=== PATIENT | male | born 1955 | race Caucasian/White ===

== ENCOUNTER → 2016-05-24 | Day surgery (SDC) | payer BC ==
[2016-05-14 08:37] VITALS: Ht 172.7 cm; Wt 82.7 kg
[~2016-05-24] VITALS: Ht 172.7 cm; Wt 82.7 kg
[~2016-05-24] MED LIST: ACET-1256 PO; ASCA500 PO; ATOR10TA88 PO; ATROPINE SULFATE 0.1 MG/ML 5ML SYR IV PRN; B-CO-25 PO; BUPIVACAINE/EPINEPHRINE 0.25% 1:200,000 30 ML VIAL ONE; CHOL1000 PO; CLINDAMYCIN PHOS 150 MG/ML 2 ML VIAL IV SCH; COEN75CA PO; DEXAMETHASONE SOD INJ 4 MG/ML VIAL ONE; DIPH25TA32 PO; EpHEDrine SULFATE 50MG/5ML SYR ONE; EpHEDrine SULFATE INJ 50 MG/ML AMP IV PRN; EpINEphrine INJ 1MG/ML AMP 1 MG/ML AMP ONE; FENTANYL CITRATE INJ 50 MCG/1 ML 2 ML VIAL IV PRN; FENTANYL CITRATE INJ 50 MCG/1 ML 2 ML VIAL ONE; LACTATED RINGER'S 1000ML 1,000 ML IV SCH; LIDOCAINE HCL 2% 2 ML VIAL (20MG/ML) ONE; METH500T3 PO; MIDAZOLAM HCL 1 MG/ML 2ML VIAL ONE; MULT-506 PO; OMEG10007 PO; ONDANSETRON INJ 2 MG/ML 2 ML VIAL IV PRN; ONDANSETRON INJ 2 MG/ML 2 ML VIAL ONE; OXYC-57 PO; OXYCODONE/ACETAMINOPHEN 5-325 TAB PO PRN; PHENYLEPHRINE HCL INJ 10 MG/ML VIAL ONE; PROB1TAB16 PO; PROPOFOL IV EMULSION 10 MG/ML 20 ML VIAL IV ONE; RANITIDINE HCL 25 MG/ML INJ ONE; ROPIVACAINE 0.5% 5 MG/ML 30 ML VIAL ONE; SCOPOLAMINE 1.5 MG TDSY TD ONE; SODIUM CHLORIDE 0.9% 1000ML 1,000 ML IV SCH
--- NOTE | 2016-05-24 07:52 | History & Physical Bridge - [place] ---
H&P Re-Evaluation Bridge Note: I have examined the patient, reviewed the History & Physical and in the interval since the performance of the History & Physical I have noted the following changes of clinical significance: No changes noted
--- NOTE | 2016-05-24 11:22 | [facility] Post Operative Brief Note ---
Immediate Operative Summary Operative Date May 24, 2016. Pre-Operative Diagnosis Left Shoulder Tendodesis, Pain Post-Operative Diagnosis Same Procedure(s) Performed Left Shoulder Arthroscopy, Subacromial Decompression, Medium Rotator Cuff Repair, Open Biceps Tenodesis Surgeon Dr. Chris Agustin Pantograph Machine Set Up Operator Surgeon(s) Binta Cantu PA-C Estimated Blood Loss 5 cc Findings as above Specimens None Complication(s) None Disposition Recovery Room / PACU
--- NOTE | 2016-05-24 11:34 | Discharge Instructions-SurgCtr ---
Discharge Instructions Visit Reason for Visit: Right Shoulder Tendinitis, Rotator Cuff Tear, Pain Discharge Discharge Diagnosis / Problem: SAME ABOVE Discharge Goals Goal(s): Decrease discomfort, Improve function Activity Recommendations Activity Limitations: as noted below Lifting Limitations: until after follow-up appointment Exercise/Sports Limitations: until after follow-up appointment Shower/Bathe: tomorrow Anesthesia . Post Anesthesia Instructions: If you have had General Anesthesia or IV Sedation: * Do not drive today. * Resume driving when surgeon permits. * Do not make important decisions or sign legal documents today. * Call surgeon for: 1. Temperature elevations greater than 101 degrees F. 2. Uncontrollable pain. 3. Excessive bleeding. 4. Persistent nausea and vomiting. 5. Medication intolerance (nausea, vomiting or rash). * For nausea and vomiting use only clear liquids such as: tea, soda, bouillon until nausea subsides, then gradually increase diet as tolerated. * If you have any concerns or questions, call your surgeon's office. If physician is unavailable and it is an emergency, call 911 or go to the nearest emergency room. . Instructions / Follow-Up Instructions / Follow-Up MEDICATIONS: * Resume previous medications unless instructed otherwise by your surgeon. * Always take pain medication on a full stomach or with food to avoid upset stomach. * Do not drink alcohol or drive while taking narcotics. * Ibuprofen or Tylenol may be taken if narcotic not needed. SPECIAL CARE INSTRUCTIONS: __ None _X_ Keep extremity elevated and iced x 48 hours; apply ice 20-30 minutes 8-10 times/day. May remove at night. __ Sling __24 hrs/day __ Remove at night _X_ Shoulder Immobilizer (MAY REMOVE AFTER 48 HOURS ONLY TO SHOWER AND FOR THERAPY) _X_ 24 hrs/day __ Remove at night _X_ Dressing __ Maintain until seen in office, may shower with plastic over site _X_ Remove dressings in 24-48 hours and then may shower _X_ Cover incisions with band-aids after showering _X_ Do not remove steri-strips (THEY MAY FALL OFF ON THEIR OWN) Call physician if chills or temperature rises above 102 degrees or pain unrelieved by prescribed pain medications at . . Diet Recommendations Home Diet: no limitations Fluid Restriction: None Procedures Procedures Performed: Left Shoulder Arthroscopy, Subacromial Decompression, Medium Rotator Cuff Repair, Open Biceps Tenodesis Pending Studies Studies pending at discharge: no Work Instructions Return To Work: after follow-up Lifting Limitations: NO LIFTING WITH LEFT ARM Medical Emergencies . Who to Call and When: Medical Emergencies: If at any time you feel your situation is an emergency, please call 911 immediately. . Non-Emergent Contact Non-Emergency issues call your: Primary Care Provider Call Non-Emergent contact if: you have a fever, temperature is above 101.5 . . "Provider Documentation" section prepared by Jorje Cantu.
--- NOTE | 2016-05-24 11:47 | OPERATIVE REPORT ---
DATE OF OPERATION: 05/24/2016 PREOPERATIVE DIAGNOSIS: Severe external impingement with traumatic rotator cuff tear of the left shoulder. POSTOPERATIVE DIAGNOSIS: Same. PROCEDURE: Left shoulder diagnostic arthroscopy with limited debridement, acromioplasty crescent-shaped traumatic rotator cuff repair and open subpectoral biceps tenodesis. SURGEON: Dr. Shubham Agustin. BORDER MACHINE OPERATOR: Augie Cantu PA-C, whose assistance was necessary for positioning the arm and helping with instrumentation. ANESTHESIA: General with a left interscalene nerve block. COMPLICATIONS: None. CONDITION: Stable to PACU. INDICATIONS: Phillip is a pleasant 61-year-old male who fell off a ladder about 6 months ago. He has been having shoulder pain since. MRI and clinical examination were diagnostic for medium-sized rotator cuff tear. After failing conservative treatment, he elected to undergo arthroscopy. PROCEDURE: On 05/24/2016 he arrived at [facility] for the above procedure. He was seen in the preoperative holding area and the operative extremity was identified and signed. He was given a preoperative antibiotic and a left interscalene nerve block. He was taken back to the operating room, laid on the table in supine position and put under general anesthesia. He was then put into the beachchair position. Left shoulder was prepped and draped in sterile fashion. Time-out was done and the patient and operative extremity was properly identified. A scope was introduced in the posterior portal. Diagnostic arthroscopy showed no cartilage damage to the humeral head or the glenoid. There was a little fraying of the labrum. There was a tear of the supraspinatus. The infraspinatus, teres minor, and subscapularis were all checked and intact. The biceps tendon was generally intact but the biceps hanny mechanism was torn from the tear. An anterior portal was made. A shaver was used to do a limited debridement of the intraarticular structures and the biceps tendon was arthroscopically tenotomized. The scope was then put into the subacromial space. A lateral portal was made. A shaver was used to do a complete subacromial and subdeltoid bursectomy. An ablator was used to tease the coracoacromial ligament off the undersurface of the acromion and a 5-0 ava was used to complete an acromioplasty a large Bigliani type 3 acromion. A shaver was used to remove any excess debris and attention was turned to the rotator cuff. An additional anterolateral portal was made and Taylor cannulas were placed in each of the lateral portals. The greater tuberosity was repaired with a ring curette and a microfracture. The rotator cuff was then fixed with an Arthrex SpeedBridge configuration using 2 medial and 2 lateral 4.75 mm BioComposite SwiveLock suture anchors and FiberTape. This gave an excellent repair. Multiple pictures were taken. Arthroscopic instruments were removed from the shoulder. Portal sites were closed with 3-0 nylon. Attention was then turned to an open biceps tenodesis. A small incision was made over the inferior border of the pec major. Dissection was taken down through the fascia and the long head of the biceps tendon was delivered out of the wound. The tendon was then whip stitched at the anticipated level of tenodesis and the remainder of the tendon was discarded. A 6 mm hole was drilled in the bicipital groove and the biceps tendon was tenodesed with an Arthrex biceps button that was passed through the posterior cortex in a tension slide technique to deliver the tendon into the 6 mm hole. This gave good fixation. The wound was then irrigated and closed with 3-0 Vicryl and running 3-0 Monocryl. Steri-strips were placed. Portal sites were closed with 3-0 nylon. He was then placed in a soft dressing and abduction arm sling. He was then extubated, transferred to a [facility] and taken to the postanesthesia care unit in stable condition. He tolerated the procedure well. I attest to the content of the Intraoperative Record and any orders documented therein. Any exceptio ns are noted below.
[2016-05-24 12:15] VITALS: TEMP 36.3
[2016-05-24 12:36] VITALS: BP 130/73; O2SAT 96
--- NOTE | 2016-05-24 12:56 | Anesthesia Progress Nt - [facility] ---
Anesthesia Post Op Note Date & Time May 24, 2016 at 12:52 Vital Signs Pain Intensity: 0 Vital Signs Past 12 Hours Date Time Temp Pulse Resp B/P Pulse Ox O2 Delivery O2 Flow Rate FiO2 05/24/16 12:36 80 16 130/73 96 Room Air 05/24/16 12:15 36.3 76 16 131/77 96 Room Air 05/24/16 12:01 74 18 05/24/16 12:01 74 18 96 05/24/16 12:00 79 15 95 05/24/16 12:00 36.4 79 20 117/72 96 Room Air 05/24/16 12:00 79 15 05/24/16 11:58 117/72 05/24/16 11:55 81 15 96 05/24/16 11:55 81 15 05/24/16 11:54 81 14 05/24/16 11:54 81 14 97 05/24/16 11:53 123/73 05/24/16 11:49 75 15 05/24/16 11:49 74 15 95 05/24/16 11:48 121/71 05/24/16 11:44 84 19 05/24/16 11:44 84 19 97 05/24/16 11:43 130/71 05/24/16 11:41 86 18 05/24/16 11:41 86 18 99 05/24/16 11:38 120/71 05/24/16 11:36 85 15 05/24/16 11:36 86 15 100 05/24/16 11:34 36.4 75 16 127/68 99 Mask 6 05/24/16 11:33 120/68 05/24/16 09:26 0 05/24/16 09:25 81 17 99 05/24/16 09:25 81 05/24/16 09:23 123/76 05/24/16 09:20 65 17 98 05/24/16 09:20 65 05/24/16 09:18 121/83 05/24/16 09:15 70 05/24/16 09:15 69 18 99 05/24/16 09:14 68 15 98 05/24/16 09:14 68 05/24/16 09:13 123/77 05/24/16 09:09 67 17 99 05/24/16 09:09 67 05/24/16 09:08 128/75 05/24/16 09:04 69 05/24/16 09:04 69 14 99 05/24/16 09:03 132/81 05/24/16 08:59 73 14 98 05/24/16 08:59 72 05/24/16 08:58 131/78 05/24/16 08:54 73 18 98 05/24/16 08:54 72 05/24/16 08:53 122/77 05/24/16 08:49 73 24 98 05/24/16 08:49 73 05/24/16 08:48 131/83 05/24/16 08:46 72 05/24/16 08:46 72 16 99 05/24/16 08:43 117/75 05/24/16 08:41 69 23 98 05/24/16 08:41 69 05/24/16 08:38 137/82 05/24/16 08:36 67 26 99 05/24/16 08:36 67 05/24/16 08:33 134/88 05/24/16 08:31 74 05/24/16 08:31 74 17 99 05/24/16 08:28 153/99 05/24/16 08:26 89 05/24/16 08:26 90 26 100 05/24/16 08:25 82 21 155/90 99 Mask 4 05/24/16 08:24 155/90 05/24/16 07:36 36.8 77 16 142/92 99 Room Air Notes Mental Status: alert / awake / arousable, participated in evaluation Pt Amnestic to Procedure: Yes Nausea / Vomiting: adequately controlled Pain: adequately controlled Airway Patency, RR, SpO2: stable & adequate BP & HR: stable & adequate Hydration State: stable & adequate Anesthetic Complications: no major complications apparent The patient is a 60 y/o male with a history of DLD s/p L shoulder Arthroscopy with Dr. Agustin under L interscalene nerve block and GA. The patient did well intraoperatively with no issues. Per Leighton the CURLING MACHINE OPERATOR while suctioning prior to extubation patient's temporary dental cap from his R lower molar was retrieved and placed in a cup. The patient was given the cap to take to his dentist in recovery. He stated he will see him on Saturday to glue it back in. The patient was very satisfied with his care with no complaints.
== END | disposition home or self-care (01) ==
LOC: X.SURG 07:14
PROVIDERS: ATTEND Orthopaedic Surgery
DX: S43.422A Sprain of left rotator cuff capsule, initial encounter (principal); M75.42 Impingement syndrome of left shoulder; W11.XXXA Fall on and from ladder, initial encounter; Y92.89 Other specified places as the place of occurrence of the external cause; Y99.8 Other external cause status; Z98.890 Other specified postprocedural states

== ENCOUNTER → 2016-06-01 | Outpatient (CLI) | payer BC ==
[~2016-06-01] MED LIST changes: -ATROPINE SULFATE 0.1 MG/ML 5ML SYR IV PRN; -BUPIVACAINE/EPINEPHRINE 0.25% 1:200,000 30 ML VIAL ONE; -CLINDAMYCIN PHOS 150 MG/ML 2 ML VIAL IV SCH; -DEXAMETHASONE SOD INJ 4 MG/ML VIAL ONE; -EpHEDrine SULFATE 50MG/5ML SYR ONE; -EpHEDrine SULFATE INJ 50 MG/ML AMP IV PRN; -EpINEphrine INJ 1MG/ML AMP 1 MG/ML AMP ONE; -FENTANYL CITRATE INJ 50 MCG/1 ML 2 ML VIAL IV PRN; -FENTANYL CITRATE INJ 50 MCG/1 ML 2 ML VIAL ONE; -LACTATED RINGER'S 1000ML 1,000 ML IV SCH; -LIDOCAINE HCL 2% 2 ML VIAL (20MG/ML) ONE; -MIDAZOLAM HCL 1 MG/ML 2ML VIAL ONE; -ONDANSETRON INJ 2 MG/ML 2 ML VIAL IV PRN; -ONDANSETRON INJ 2 MG/ML 2 ML VIAL ONE; -OXYCODONE/ACETAMINOPHEN 5-325 TAB PO PRN; -PHENYLEPHRINE HCL INJ 10 MG/ML VIAL ONE; -PROPOFOL IV EMULSION 10 MG/ML 20 ML VIAL IV ONE; -RANITIDINE HCL 25 MG/ML INJ ONE; -ROPIVACAINE 0.5% 5 MG/ML 30 ML VIAL ONE; -SCOPOLAMINE 1.5 MG TDSY TD ONE; -SODIUM CHLORIDE 0.9% 1000ML 1,000 ML IV SCH
--- NOTE | 2016-06-04 07:29 | DIAGNOSTIC IMAGING REPORT ---
CT PELVIS W/ORAL CONT ONLY (CT) CT DOSE: 301.54 mGy.cm CLINICAL HISTORY: Pelvic pain. Suspected diverticulitis. TECHNIQUE: The patient was scanned following the administration of dilute oral contrast. No intravenous contrast was administered. COMPARISON STUDY: 01/29/2014 FINDINGS: There is no evidence of abdominal aortic aneurysm. There is no evidence of pathologic bowel dilatation. The appendix appears normal. There is colonic diverticulosis. There is no evidence of acute peridiverticular inflammatory change. There is no evidence of pathologic adenopathy. There is a small fat-containing right inguinal hernia. IMPRESSION: 1. Normal appendix 2. Diverticulosis. No evidence of acute peridiverticular inflammatory change 3. Small fat-containing right inguinal hernia Electronically signed by: Travon Aguiar M.D. 06/01/2016 12:02 PM Dictated Date/Time: 06/01/2016 12:00 PM
== END | disposition home or self-care (01) ==
LOC: C.CTS 11:09
PROVIDERS: ATTEND Family Medicine
DX: K57.92 Diverticulitis of intestine, part unspecified, without perforation or abscess without bleeding (principal)